=== PATIENT | male | born 1950 | race Caucasian/White ===

== ENCOUNTER 2021-07-05 09:08 | Inpatient (IN) ==
--- NOTE | 2021-07-05 09:51 | Emergency Department Note ---
History of Present Illness General Chief complaint: Abnormal Labs/Diagnostic Testing Stated complaint: ABNORMAL LABS Time Seen by Provider: 07/05/21 09:16 History of Present Illness Maximum Pain Intensity: 7 Patient is a 71-year-old male who returns to the emergency department as advised after having a positive preliminary blood culture this morning. He was seen and evaluated by myself yesterday, when he came to the emergency department for evaluation of left foot pain x1 week. He notes that he had twisted the foot getting out of a car about a week or so prior. Additionally, he had had about 3 days of subjective fever, with chills. He had no other infectious symptoms including cough, URI symptoms, dysuria, and was not actually documenting temperatures greater than 100 F. Work-up here in the emergency department noted normal left foot and ankle x-rays. Blood work noted a slightly elevated white count, sed rate and CRP. A Lyme screen was positive, with Western blot and remaining tickborne illness testing pending. It was felt that treatment with doxycycline was appropriate pending the remaining test results. He has had 2 doses of Doxy since leaving the emergency department. He has not had any further chills or sweats. The left foot feels better in his walking boot and using a crutch. He does still note some swelling and erythema in the feet bilaterally, right worse than left. 1 of 2 blood cultures was positive for gram-positive cocci in chains this morning at 0730. He was contacted and brought back to the emergency department for further evaluation. Home Medications Medication Instructions Recorded Confirmed Type albuterol sulfate 90 mcg/actuation 2 puff INHALATION QID PRN #8.5 g 11/29/19 07/05/21 Rx aerosol inhaler (ProAir HFA) doxycycline hyclate 100 mg tablet 100 mg PO BID 14 Days #28 tab 07/04/21 07/05/21 Rx multivitamin 1 tab PO QAM 07/04/21 07/05/21 History vitamin B complex 1 tab PO QAM 07/04/21 07/05/21 History Allergies Allergy/AdvReac Type Severity Reaction Status Date / Time Penicillins AdvReac Unknown Verified 07/05/21 12:30 Past Med/Surg History Medical History Allergic rhinitis Asthma Dyslipidemia Eczema Elevated blood pressure reading in office with diagnosis of hypertension Epidermoid cyst Insomnia Pre-diabetes Surgical History H/O neck surgery Family History Denies family history of Ovarian cancer Prostate cancer Myocardial infarction Breast cancer Colorectal cancer Social History Smoking Status: Former smoker Tobacco Type: Cigarettes Age Started Using Tobacco: 16; Age Quit Using Tobacco: 41; Second Hand Exposure: No; Hx Alcohol Use: Yes Hx Substance Use: No Preferred Language: Canadian Communication Ability: Effective Director Of Vocational Training Required: No marital status: Current Living Situation: Spouse current occupational status: retired How many Children do You have: 2 Feels Safe at Home: Yes Childhood Exposure to Second-Hand Smoke: Yes caffeine: Yes (coffee) Dental Care, Regularly: Yes Physical Activity Frequency: 1-2 Times per Week Seatbelt Use: always Sunscreen Use: No Review of Systems A total of 10 systems reviewed and were otherwise negative Physical Exam Vital Signs Vital Signs - 24 hr 07/05/21 09:13 07/05/21 09:57 07/05/21 10:04 Temperature 36.4 C L Temperature Source Temporal Artery Scan Pulse Rate 95 H 82 Pulse Rate [Apical] 89 Pulse Rhythm Regular Pulse Rhythm [Apical] Regular Pulse Strength [Apical] Normal Respiratory Rate 16 20 Respiratory Effort / Characteristics Non-Labored Spontaneous Respiratory Depth Normal Respiratory Pattern Regular Blood Pressure 155/76 H Blood Pressure [Left Arm] 167/75 H Blood Pressure Mean 102 Blood Pressure Mean [Left Arm] 105 Blood Pressure Position [Left Arm] Sitting Pulse Oximetry 98 98 99 Oxygen Delivery Method Room Air Room Air Room Air Sepsis Recent Fever Within 48 Hours Yes Sepsis New/Unexplained Change in Mental Status No Sepsis Action Taken by Nursing No Action Required 07/05/21 11:18 07/05/21 15:37 Temperature Temperature Source Pulse Rate 78 Pulse Rate [Apical] 79 Pulse Rhythm Pulse Rhythm [Apical] Regular Pulse Strength [Apical] Normal Respiratory Rate 20 18 Respiratory Effort / Characteristics Non-Labored Spontaneous Respiratory Depth Normal Respiratory Pattern Regular Blood Pressure 136/80 Blood Pressure [Left Arm] 155/79 H Blood Pressure Mean Blood Pressure Mean [Left Arm] 104 Blood Pressure Position [Left Arm] Sitting Pulse Oximetry 100 98 Oxygen Delivery Method Room Air Room Air Sepsis Recent Fever Within 48 Hours Sepsis New/Unexplained Change in Mental Status Sepsis Action Taken by Nursing CONSTITUTIONAL: Patient is a pleasant, well-appearing 71-year-old male who is awake and alert and in no acute distress. Temperature rechecked by me orally at the time of exam was 37F. EYES: Pupils equal, round, reactive to light and accommodation. EOMs intact without nystagmus. Sclera are anicteric. ENT: Tympanic membranes intact, with normal landmarks. External canals are clear. Oral and nasopharynx are clear. Mucous membranes are moist, no lesions, tongue and gums appear normal. CARDIOVASCULAR: Regular rate and rhythm,. Peripheral pulses easy to palpable. RESPIRATORY: Breath sounds equal and clear to auscultation without wheezes, rales, or rhonchi heard. Full and equal chest expansion without accessory muscle use or retractions. GI: Bowel sounds are present. Abdomen is soft, nontender, nondistended. No organomegaly. No pulsatile masses. No guarding or rebound. MUSCULOSKELETAL: Left foot is in a tall walking boot, this was removed. Examination of the feet bilaterally note erythema and swelling, primarily over the first MTP joints. The right foot is more erythematous, warm and swollen, but the left foot is more tender to palpation. Trace pitting edema noted to the ankles bilaterally. There is no lymphangitic streaking. Skin is intact without rash, lesion or puncture wound. He does still have some tenderness over the lateral aspect of the left foot and ankle. INTEGUMENTARY: As above. NEUROLOGICAL: Alert, oriented, and cooperative. Cranial nerves, sensation and strength grossly intact. Course Course The patient was seen and assessed as above. Old records are reviewed. He retu rns to the emergency department after having a positive blood culture x1 from his ED visit yesterday. In summary, he has had left foot pain for about a week, there was an injury to this foot however, and he was not responding to supportive management. He then subsequently developed subjective fever, chills/shakes, and fatigue but not true rigors. No fevers over 100 F. Work-up yesterday revealed negative x-rays, a mild leukocytosis with elevated sed rate and CRP and a positive IgG on Lyme screen. It was thought that his left foot pain was musculoskeletal in nature, and he was placed in a fracture boot. He was encouraged to follow-up with orthopedics. Given the chills, fatigue and malaise and the preliminarily positive Lyme screen, did think that it was reasonable to cover him with doxycycline. This morning, one of his blood cultures was positive for gram-positive cocci in chains. Patient history and presentation were reviewed with Dr. Harris, and the ED work-up was agreed upon. She also independently evaluated the patient. IV lock was initiated. CBC with differential, CMP, procalcitonin, lactate, magnesium, coags, urinalysis and blood cultures x2 were drawn again today. EKG and chest x-ray were obtained. Upper respiratory PCR panel was obtained. He was treated with vancomycin 2.5 g IV. CAT scan of the left foot was obtained. Laboratory studies note a slightly elevated white count at 12,400, down from 13,000 yesterday. H&H 13.3 and 38.9 with normal indices. INR 1.2. Electrolytes and renal functions are normal. Lactate is normal at 0.8. Transaminases are not elevated. Procalcitonin was ordered but is pending and will be delayed due to maintenance on the machine in the lab. Nasopharyngeal swab for viral pathology was completely clear. Chest x-ray was unremarkable. CT scan of the left foot is concerning for gouty arthropathy. No acute fracture dislocation noted but there are joint effusions and intra-articular debris in the first and TP and the IP joints. Soft tissue swelling is noted. All laboratory and diagnostic imaging studies were reviewed with Dr. Harris. The discomfort in his feet appears to be gouty in nature, I do question whether he may have a secondary cellulitis over the right foot. Given the positive blood culture and findings on work-up and exam today it was felt reasonable for admission/observation for additional IV antibiotics until blood cultures are resulted. His tickborne illness testing will likely be finalized in the next 48 hours as well. Consultation was placed with the [facility] physician group hospitalist service for further care and management, patient was reviewed with Dr. Ray. At time of dictation, procalcitonin was resulted and was within normal limits. Administered Medications Discontinued Medications Vancomycin HCl 2,500 mg/ (Sodium Chloride) 550 mls @ 200 mls/hr IV NOW ONE Stop: 07/05/21 12:47 Last Infusion: 07/05/21 14:56 Dose: 0 mls/hr Documented by: [id number] Admin: 07/05/21 11:18 Dose: 200 mls/hr Documented by: [id number] Methylprednisolone (Methylprednisolone 40 Mg/Ml Vial) 40 mg IV NOW STA Stop: 07/05/21 14:23 Last Admin: 07/05/21 14:54 Dose: 40 mg Documented by: [id number] Medical Decision Making Differential Diagnosis Differential diagnoses entertained included fracture, sprain, crystal arth ropathy, septic joint, cellulitis, viral illness, tickborne illness, sepsis, bacteremia, osteomyelitis, among others. Medical Records Attestation: I reviewed the patient's medical records. Home Medications Current Medication List: was personally reviewed by me Laboratory Data Attestation: I reviewed the patient's lab results. Result diagrams: 07/05/21 09:30 07/05/21 09:30 Lab Results 07/05/21 07/05/21 07/05/21 Range/Units 09:30 09:30 09:30 WBC 12.44 H (4.8-10.8) K/uL RBC 4.21 L (4.7-6.1) M/uL Hgb 13.3 L (14.0-18.0) g/dL Hct 38.9 L (42-52) % MCV 92.4 (80-100) fL MCH 31.6 (25-34) pg MCHC 34.2 (32-36) g/dL RDW Std Deviation 41.5 (36.4-46.3) fL RDW Coeff of Moises 12.2 (11.5-14.5) % Plt Count 374 (130-400) K/uL MPV 9.7 (7.4-10.4) fL Immature Gran % (Auto) 0.2 % Neut % (Auto) 71.8 % Lymph % (Auto) 15.0 % Rhea % (Auto) 10.6 % Eos % (Auto) 2.1 % Baso % (Auto) 0.3 % Neut # (Auto) 8.93 H (1.4-6.5) K/uL Lymph # (Auto) 1.86 (1.2-3.4) K/uL Rhea # (Auto) 1.32 H (0.11-0.59) K/uL Eos # (Auto) 0.26 (0-0.5) K/uL Baso # (Auto) 0.04 (0-0.2) K/uL Immature Gran # (Auto) 0.03 H (0.00-0.02) K/uL PT (9.0-12.0) Seconds INR (0.9-1.1) APTT (21.0-31.0) Seconds PTT Ratio Sodium 135 L (136-145) mmol/L Potassium 4.6 (3.5-5.1) mmol/L Chloride 98 (98-107) mmol/L Carbon Dioxide 27 (21-32) mmol/L Anion Gap 10 (3-11) BUN 18 (6-23) mg/dl Creatinine 1.16 (0.6-1.4) mg/dl Est Cr Clr Drug Dosing 87.8 ml/min Est GFR ( Amer) 73.5 ml/min Est GFR (Non-Af Amer) 63.5 ml/min BUN/Creatinine Ratio 15.5 (10-20) Glucose 139 H (70-99(Fasting)) mg/dl Lactate (0.4-2.0) mmol/L Calcium 9.2 (8.5-10.1) mg/dl Magnesium 2.3 (1.7-2.4) mg/dl Total Bilirubin 1.0 (0.2-1.0) mg/dl AST 21 (13-39) U/L ALT 24 (7-52) U/L Alkaline Phosphatase 53 (34-104) U/L Total Protein 7.1 (6.0-8.3) gm/dl Albumin 3.7 (3.4-5.0) gm/dl Globulin 3.4 (2.5-4.0) gm/dl Albumin/Globulin Ratio 1.1 (0.9-2) Procalcitonin 0.15 (0-0.5) ng/ml Adenovirus (PCR) (NotDetected) B. pertussis DNA (PCR) (NotDetected) B.parapertussis DNA PCR (NotDetected) C. pneumoniae DNA (PCR) (NotDetected) Coronavirus OC43 (PCR) (NotDetected) Coronavirus HKU1 (PCR) (NotDetected) Coronavirus 229E (PCR) (NotDetected) SARS-CoV-2 (PCR) (NotDetected) Coronavirus NL63 (PCR) (NotDetected) Human Metapneumovir PCR (NotDetected) Influenza Type A (PCR) (NotDetected) Influenza Type B (PCR) (NotDetected) M. pneumoniae (PCR) (NotDetected) Parainfluenza 1 (PCR) (NotDetected) Parainfluenza 2 (PCR) (NotDetected) Parainfluenza 3 (PCR) (NotDetected) Parainfluenza 4 (PCR) (NotDetected) RSV (PCR) (NotDetected) Entero/Rhino (PCR) (NotDetected) 07/05/21 07/05/21 07/05/21 Range/Units 09:54 10:12 10:12 WBC (4.8-10.8) K/uL RBC (4.7-6.1) M/uL Hgb (14.0-18.0) g/dL Hct (42-52) % MCV (80-100) fL MCH (25-34) pg MCHC (32-36) g/dL RDW Std Deviation (36.4-46.3) fL RDW Coeff of Moises (11.5-14.5) % Plt Count (130-400) K/uL MPV (7.4-10.4) fL Immature Gran % (Auto) % Neut % (Auto) % Lymph % (Auto) % Rhea % (Auto) % Eos % (Auto) % Baso % (Auto) % Neut # (Auto) (1.4-6.5) K/uL Lymph # (Auto) (1.2-3.4) K/uL Rhea # (Auto) (0.11-0.59) K/uL Eos # (Auto) (0-0.5) K/uL Baso # (Auto) (0-0.2) K/uL Immature Gran # (Auto) (0.00-0.02) K/uL PT 12.4 H (9.0-12.0) Seconds INR 1.2 H (0.9-1.1) APTT 27.0 (21.0-31.0) Seconds PTT Ratio 1.0 Sodium (136-145) mmol/L Potassium (3.5-5.1) mmol/L Chloride (98-107) mmol/L Carbon Dioxide (21-32) mmol/L Anion Gap (3-11) BUN (6-23) mg/dl Creatinine (0.6-1.4) mg/dl Est Cr Clr Drug Dosing ml/min Est GFR ( Amer) ml/min Est GFR (Non-Af Amer) ml/min BUN/Creatinine Ratio (10-20) Glucose (70-99(Fasting)) mg/dl Lactate 0.8 (0.4-2.0) mmol/L Calcium (8.5-10.1) mg/dl Magnesium (1.7-2.4) mg/dl Total Bilirubin (0.2-1.0) mg/dl AST (13-39) U/L ALT (7-52) U/L Alkaline Phosphatase (34-104) U/L Total Protein (6.0-8.3) gm/dl Albumin (3.4-5.0) gm/dl Globulin (2.5-4.0) gm/dl Albumin/Globulin Ratio (0.9-2) Procalcitonin (0-0.5) ng/ml Adenovirus (PCR) Not Detected (NotDetected) B. pertussis DNA (PCR) Not Detected (NotDetected) B.parapertussis DNA PCR Not Detected (NotDetected) C. pneumoniae DNA (PCR) Not Detected (NotDetected) Coronavirus OC43 (PCR) Not Detected (NotDetected) Coronavirus HKU1 (PCR) Not Detected (NotDetected) Coronavirus 229E (PCR) Not Detected (NotDetected) SARS-CoV-2 (PCR) Not Detected (NotDetected) Coronavirus NL63 (PCR) Not Detected (NotDetected) Human Metapneumovir PCR Not Detected (NotDetected) Influenza Type A (PCR) Not Detected (NotDetected) Influenza Type B (PCR) Not Detected (NotDetected) M. pneumoniae (PCR) Not Detected (NotDetected) Parainfluenza 1 (PCR) Not Detected (NotDetected) Parainfluenza 2 (PCR) Not Detected (NotDetected) Parainfluenza 3 (PCR) Not Detected (NotDetected) Parainfluenza 4 (PCR) Not Detected (NotDetected) RSV (PCR) Not Detected (NotDetected) Entero/Rhino (PCR) Not Detected (NotDetected) Imaging Data Attestation: I personally reviewed and interpreted this imaging study as follows: Radiologist's Impression: Chest X-Ray 07/05/21 09:25 SINGLE VIEW CHEST CLINICAL HISTORY: Sepsis. FINDINGS: 2 AP, portable, upright chest radiographs are obtained. No prior studies are available for comparison at the time of dictation. The examination is degraded by portable technique and apical lordotic positioning. The cardiomediastinal silhouette is top normal for projection. There is mild bibasilar scarring/atelectasis. The lungs and pleural spaces are otherwise clear. No pneumothorax is seen. The skeletal structures are osteopenic. The bony thorax is grossly intact. IMPRESSION: No acute cardiopulmonary abnormality. ACT 112: Negative or not required by law. Electronically signed by: Guy Ledezma M.D. 07/05/2021 9:[address] 07/05/21 10:33 CT foot LT wo con HISTORY: 71 years-old Male PAIN/SWELLING GOUT VS CELLULITIS acute pain and swelling of the left foot COMPARISON: Radiographs of the left foot and ankle 07/04/2021 TECHNIQUE: Multiple axial CT images of the left foot were obtained without the use of IV contrast. A dose lowering technique was used consistent with the principals of ALARA. FINDINGS: Tendons and ligaments are not well evaluated by CT technique. No gross tendon or ligament injury identified by CT. Subcutaneous edema of the foot and ankle, most pronounced in the dorsal forefoot and also surrounding the first MTP joint. Marginal and juxta-articular erosions with sclerotic overhanging margins are noted involving the first metatarsophalangeal and interphalangeal joints. Moderate first MTP with mild first interphalangeal joint effusions are noted along with calcified intra-articular debris. No acute fracture or dislocation. Multifocal osteoarthritis, moderate within the first MTP joint. Degenerative marginal spurring of the calcaneus. IMPRESSION: 1. No acute fracture or dislocation. 2. Findings suggestive of gout arthropathy involving the first metatarsophalangeal and interphalangeal joints with associated joint effusions containing subcentimeter calcified intra-articular debris/loose bodies. 3. Mild to moderate subcutaneous edema of the foot and ankle. ACT 112: Negative or not required by law. The above report was generated using voice recognition software. It may contain grammatical, syntax or spelling errors. Electronically signed by: Randy Suarez M.D. 07/05/2021 11:47 AM MDM Narrative See ED Course. Impression & Plan Blood bacterial culture positive, Gout, Positive Lyme disease serology Discharge Plan Visit Data Chief Complaint: Abnormal Labs/Diagnostic Testing Stated Complaint: ABNORMAL LABS ED Provider: Sarita Harris ED Midlevel Provider: Kelly Marcos Discharge Problem: Blood bacterial culture positive, Gout, Positive Lyme disease serology Patient Disposition: Admitted As Inpatient Discharge Instructions Interventions: ED Discharge Assessment Last Done: 07/05/21 15:37 Forms Stand Alone Forms: [employer] Prescriptions Prescriptions: No Action albuterol sulfate [ProAir HFA] 90 mcg/actuation HFA aerosol inhaler 2 puff inhalation QID PRN (Reason: shortness of breath or wheezing) Qty: 8.5 RF: 2 multivitamin Tablet 1 tab PO QAM RF: 0 vitamin B complex Tablet 1 tab PO QAM RF: 0 doxycycline hyclate 100 mg tablet 100 mg PO BID 14 Days Qty: 28 RF: 0 Referrals Referrals: Alyssa Powell CRNP [Primary Care Provider] -
--- NOTE | 2021-07-05 09:54 | XRay Report ---
SINGLE VIEW CHEST CLINICAL HISTORY: Sepsis. FINDINGS: 2 AP, portable, upright chest radiographs are obtained. No prior studies are available for comparison at the time of dictation. The examination is degraded by portable technique and apical jackie dotic positioning. The cardiomediastinal silhouette is top normal for projection. There is mild bibas ilar scarring/atelectasis. The lungs and pleural spaces are otherwise clear. No pneumothorax is seen. The skeletal structures are osteopenic. The bony thorax is grossly intact. IMPRESSION: No acute cardiopulmonary abnormality. ACT 112: Negative or not required by law. Electronically signed by: Guy Ledezma M.D. 07/05/2021 9:53 AM
[2021-07-05 09:56] LABS: Basophils # (auto) 0.04 K/uL (0-0.2); Basophils % (auto) 0.3 %; Eosinophils # (auto) 0.26 K/uL (0-0.5); Eosinophils % (auto) 2.1 %; Hematocrit (blood only) 38.9 % (42-52); Hemoglobin 13.3 g/dL (14.0-18.0); Immature Granulocytes # (auto) 0.03 K/uL (0.00-0.02); Immature Granulocytes % (auto) 0.2 %; Lymphocytes # (auto) 1.86 K/uL (1.2-3.4); Mean Corpuscular Hemoglobin 31.6 pg (25-34); Mean Corpuscular Hgb Conc 34.2 g/dL (32-36); Mean Corpuscular Volume 92.4 fL (80-100); Mean Platelet Volume 9.7 fL (7.4-10.4); Monocytes # (auto) 1.32 K/uL (0.11-0.59); Monocytes % (auto) 10.6 %; Neutrophils # (auto) 8.93 K/uL (1.4-6.5); Neutrophils % (auto) 71.8 %; Platelet Count 374 K/uL (130-400); RDW Coefficient of Variation 12.2 % (11.5-14.5); RDW Standard Deviation 41.5 fL (36.4-46.3); Red Blood Count 4.21 M/uL (4.7-6.1); White Blood Count 12.44 K/uL (4.8-10.8)
[2021-07-05] MEDS ORDERED: VANCOMYCIN HCL 2,500 MG in SODIUM CHLORIDE 0.9% 500 ML IV ONE (10:03)
[2021-07-05] MEDS ORDERED: VANCOMYCIN CONSULT ACTIVE PRN (10:03)
[2021-07-05 10:26] LABS: Albumin Globulin Ratio 1.1 (0.9-2); Albumin Level 3.7 gm/dl (3.4-5.0); BUN Creatinine Ratio 15.5 (10-20); Calcium 9.2 mg/dl (8.5-10.1); Creatinine Clr Calc Pharmacy 87.8 ml/min; Est GFR (African American) 73.5 ml/min; Est GFR (Non-African American) 63.5 ml/min; Globulin 3.4 gm/dl (2.5-4.0); Magnesium 2.3 mg/dl (1.7-2.4); Potassium 4.6 mmol/L (3.5-5.1); Total Protein 7.1 gm/dl (6.0-8.3)
[2021-07-05 10:37] LABS: INR 1.2 (0.9-1.1); Prothrombin Time 12.4 Seconds (9.0-12.0)
--- NOTE | 2021-07-05 10:53 | Emergency Department Note ---
ED Visit Note I have personally seen and evaluated the patient with the PA. I agree with the diagnosis and management decisions and have been personally involved in the case. MTP joints are inflamed, right greater than left. Patient seems to have more pain in the left MTP. Given the one positive blood culture, elevated WBC, sed rate and CRP, IV vancomycin has been initiated. Additional imaging has been ordered. Please see Giulia Marcos PA-C's notes for further details of the history, physical and visit.
[2021-07-05 11:04] LABS: Adenovirus PCR Not Detected (NotDetected); Bordetella parapertussis PCR Not Detected (NotDetected); Bordetella pertussis PCR Not Detected (NotDetected); Chlamydia pneumoniae PCR Not Detected (NotDetected); Coronavirus 229E PCR Not Detected (NotDetected); Coronavirus CoV-2 (COVID19)PCR Not Detected (NotDetected); Coronavirus HKU1 PCR Not Detected (NotDetected); Coronavirus NL63 PCR Not Detected (NotDetected); Coronavirus OC43PCR Not Detected (NotDetected); Human Metapneumovirus PCR Not Detected (NotDetected); Influenza A PCR Not Detected (NotDetected); Influenza B PCR Not Detected (NotDetected); Mycoplasma pneumoniae PCR Not Detected (NotDetected); Parainfluenza Virus 1 PCR Not Detected (NotDetected); Parainfluenza Virus 2 PCR Not Detected (NotDetected); Parainfluenza Virus 3 PCR Not Detected (NotDetected); Parainfluenza Virus 4 PCR Not Detected (NotDetected); Respiratory Syncytial VirusPCR Not Detected (NotDetected); Rhinovirus/Enterovirus PCR Not Detected (NotDetected)
--- NOTE | 2021-07-05 11:49 | CT Scan Report ---
CT foot LT wo con HISTORY: 71 years-old Male PAIN/SWELLING GOUT VS CELLULITIS acute pain and swelling of the left foot COMPARISON: Radiographs of the left foot and ankle 07/04/2021 TECHNIQUE: Multiple axial CT images of the left foot were obtained without the use of IV contrast. A dose lowering technique was used consistent with the principals of ACOSTA. FINDINGS: Tendons and ligaments are not well evaluated by CT technique. No gross tendon or ligament injury iden tified by CT. Subcutaneous edema of the foot and ankle, most pronounced in the dorsal forefoot and al so surrounding the first MTP joint. Marginal and juxta-articular erosions with sclerotic overhanging margins are noted involving the first metatarsophalangeal and interphalangeal joints. Moderate first MTP with mild first interphalangeal joint effusions are noted along with calcified intra-articular de bris. No acute fracture or dislocation. Multifocal osteoarthritis, moderate within the first MTP joint. Deg enerative marginal spurring of the calcaneus. IMPRESSION: 1. No acute fracture or dislocation. 2. Findings suggestive of gout arthropathy involving the first metatarsophalangeal and interphalangea l joints with associated joint effusions containing subcentimeter calcified intra-articular debris/lo ose bodies. 3. Mild to moderate subcutaneous edema of the foot and ankle. ACT 112: Negative or not required by law. The above report was generated using voice recognition software. It may contain grammatical, syntax o r spelling errors. Electronically signed by: Randy Suarez M.D. 07/05/2021 11:47 AM
--- NOTE | 2021-07-05 13:35 | History & Physical Report ---
Date of Service July 05, 2021 Assessment & Plan (1) Gout: Plan: Placed in monitored observation I suspect that this is the cause of the patient's lower extremity erythema, seen on the left CT scan. Patient does not have a history of gout however. I did ask ER to order foot CT of the contralateral foot to confirm Patient was given vancomycin in the ER, will hold off on further dosing until blood cultures result I will start colchicine p.o. along with IV dosing of Solu-Medrol. Monitor for results, seems to already be resolving (2) Blood bacterial culture positive: Plan: 1 out of 2 bottles gram-positive cocci, suspect this is contaminant Transient symptoms of infection for as reported may be from gout, seem to have resolved Patient was given vancomycin in the ER as noted above, will hold further dosing for now Await final ID and sensitivity of cultures from first ER visit, monitor repeat cultures today. If negative, would not treat with antibiotics further (3) Positive Lyme disease serology: Plan: Suspect this is evidence of previous gout infection rather than a new acute gout infection Patient had left the emergency room yesterday with doxycycline, I do not feel continuing this is necessary Await final lab results (4) Asthma: Plan: Quiescent, can use albuterol as needed (5) Dyslipidemia: Plan: Patient does not appear to be on any medications at this an outpatient Will check fasting lipids in the morning History of Present Illness Chief Complaint: foot pain Primary Care Provider: LOREN Joyner This is a 71-year-old male with past medical history of hyperlipidemia, asthma and hypertension that presents complaining of foot pain with positive blood cultures. Patient is a decent historian. Per history, patient had initially presented to the emergency room yesterday on 07/04 complaining foot pain. This was noted as a left foot pain and swelling. This is persisted for approximately a week, he thought that he had injured it getting out of a vehicle. Initially the erythema was on the lateral aspect of the foot but has since settled into the first metatarsal joint. This area was painful and tender although he tells me that is improved since his ER visit yesterday. Patient also describes some mild URI type symptoms and had coincidently tested positive for Lyme disease and was started on doxycycline. (On review, I see the patient has a positive for IgG. IgM is negative with Western blot pending, more concerning for previous Lyme infection than acute course.) Patient was called back to the ER today after blood cultures are positive. He had 1 out of 2 bottles positive for gram-positive cocci. On his return, he told staff that his foot was feeling much better but has now developed erythema in the right foot. This is in a similar area over the right first metatarsal joint. The area was tender but again he tells me this is improved since presenting. His other symptoms including fevers or chills are since resolved and he otherwise feels well. He is requesting to ambulate under his own power to the bathroom. Allergies Allergy/AdvReac Type Severity Reaction Status Date / Time Penicillins AdvReac Unknown Verified 07/05/21 12:30 Home Medications Medication Instructions Recorded Confirmed Type albuterol sulfate 90 mcg/actuation 2 puff INHALATION QID PRN #8.5 g 11/29/19 07/05/21 Rx aerosol inhaler (ProAir HFA) doxycycline hyclate 100 mg tablet 100 mg PO BID 14 Days #28 tab 07/04/21 07/05/21 Rx multivitamin 1 tab PO QAM 07/04/21 07/05/21 History vitamin B complex 1 tab PO QAM 07/04/21 07/05/21 History Past Med/Surg History Medical History Allergic rhinitis Asthma Dyslipidemia Eczema Elevated blood pressure reading in office with diagnosis of hypertension Epidermoid cyst Insomnia Pre-diabetes Surgical History H/O neck surgery Family History Denies family history of Ovarian cancer Prostate cancer Myocardial infarction Breast cancer Colorectal cancer Social History Smoking Status: Former smoker Tobacco Type: Cigarettes Age Started Using Tobacco: 16; Age Quit Using Tobacco: 41; Second Hand Exposure: No; Hx Alcohol Use: Yes Hx Substance Use: No Preferred Language: Kinyarwanda Communication Ability: Effective Trauma Surgeon Required: No marital status: Current Living Situation: Spouse current occupational status: retired How many Children do You have: 2 Feels Safe at Home: Yes Childhood Exposure to Second-Hand Smoke: Yes caffeine: Yes (coffee) Dental Care, Regularly: Yes Physical Activity Frequency: 1-2 Times per Week Seatbelt Use: always Sunscreen Use: No Review of Systems Constitutional: + fever and + chills; no fatigue, no weakness, no weight loss and no weight gain Eyes: as per Subjective / HPI Respiratory: no cough, no chest congestion, no dyspnea and no dyspnea on exertion Cardiovascular: no chest pain, no orthopnea, no palpitations, no lightheadedness and no edema Gastrointestinal: no abdominal pain, no nausea, no vomiting, no constipation and no diarrhea/loose stools Musculoskeletal: + joint pain (no knee pain); no back pain, no neck pain, no stiffness and no myalgia Integumentary: no rash Neurologic: no gait abnormality, no unsteadiness, no falls and no generalized weakness Physical Exam Constitutional: cooperative; no acute distress Neck: trachea midline, no thyromegaly Respiratory: normal respiratory effort Auscultation: lungs clear to auscultation bilaterally; no crackles, no rales, no rhonchi and no wheezes Cardiovascular: Rate/Rhythm: regular rate and regular rhythm Heart Sounds: normal S1 and normal S2; no murmur Gastrointestinal (Abdomen): Inspection/Auscultation: abdomen normal to inspection Percussion/Palpation: abdomen soft; abdomen nontender, no guarding, abdomen not rigid and no hepatosplenomegaly Musculoskeletal: Trace bilateral nonpitting edema. Significant erythema with mild edema around the first metatarsal joints of both the left and right foot. Patient has full active mobility in his toes without pain and no tenderness with palpation Skin: no rashes, warm and dry Results & Data Results & Data ([facility]) Vital Signs (Past 12 Hours) Vital Signs Temp Pulse Pulse Resp BP BP Pulse Ox 07/05/21 11:18 79 20 155/79 H 100 07/05/21 10:04 89 20 167/75 H 99 07/05/21 09:57 82 98 07/05/21 09:13 36.4 C L 95 H 16 155/76 H 98 Laboratory Results Laboratory Results WBC 12.44 K/uL (4.8-10.8) H 07/05/21 09:30 RBC 4.21 M/uL (4.7-6.1) L 07/05/21 09:30 Hgb 13.3 g/dL (14.0-18.0) L 07/05/21 09:30 Hct 38.9 % (42-52) L 07/05/21 09:30 MCV 92.4 fL (80-100) 07/05/21 09:30 MCH 31.6 pg (25-34) 07/05/21 09:30 MCHC 34.2 g/dL (32-36) 07/05/21 09:30 RDW Std Deviation 41.5 fL (36.4-46.3) 07/05/21 09:30 RDW Coeff of Moises 12.2 % (11.5-14.5) 07/05/21 09:30 Plt Count 374 K/uL (130-400) 07/05/21 09:30 MPV 9.7 fL (7.4-10.4) 07/05/21 09:30 Immature Gran % (Auto) 0.2 % 07/05/21 09:30 Neut % (Auto) 71.8 % 07/05/21 09:30 Lymph % (Auto) 15.0 % 07/05/21 09:30 [place] % (Auto) 10.6 % 07/05/21 09:30 Eos % (Auto) 2.1 % 07/05/21 09:30 Baso % (Auto) 0.3 % 07/05/21 09:30 Neut # (Auto) 8.93 K/uL (1.4-6.5) H 07/05/21 09:30 Lymph # (Auto) 1.86 K/uL (1.2-3.4) 07/05/21 09:30 [place] # (Auto) 1.32 K/uL (0.11-0.59) H 07/05/21 09:30 Eos # (Auto) 0.26 K/uL (0-0.5) 07/05/21 09:30 Baso # (Auto) 0.04 K/uL (0-0.2) 07/05/21 09:30 Immature Gran # (Auto) 0.03 K/uL (0.00-0.02) H 07/05/21 09:30 PT 12.4 Seconds (9.0-12.0) H 07/05/21 10:12 INR 1.2 (0.9-1.1) H 07/05/21 10:12 APTT 27.0 Seconds (21.0-31.0) 07/05/21 10:12 PTT Ratio 1.0 07/05/21 10:12 Sodium 135 mmol/L (136-145) L 07/05/21 09:30 Potassium 4.6 mmol/L (3.5-5.1) 07/05/21 09:30 Chloride 98 mmol/L (98-107) 07/05/21 09:30 Carbon Dioxide 27 mmol/L (21-32) 07/05/21 09:30 Anion Gap 10 (3-11) 07/05/21 09:30 BUN 18 mg/dl (6-23) 07/05/21 09:30 Creatinine 1.16 mg/dl (0.6-1.4) 07/05/21 09:30 Est Cr Clr Drug Dosing 87.8 ml/min 07/05/21 09:30 Est GFR ( Amer) 73.5 ml/min 07/05/21 09:30 Est GFR (Non-Af Amer) 63.5 ml/min 07/05/21 09:30 BUN/Creatinine Ratio 15.5 (10-20) 07/05/21 09:30 Glucose 139 mg/dl (70-99(Fasting)) H 07/05/21 09:30 Lactate 0.8 mmol/L (0.4-2.0) 07/05/21 10:12 Calcium 9.2 mg/dl (8.5-10.1) 07/05/21 09:30 Magnesium 2.3 mg/dl (1.7-2.4) 07/05/21 09:30 Total Bilirubin 1.0 mg/dl (0.2-1.0) 07/05/21 09:30 AST 21 U/L (13-39) 07/05/21 09:30 ALT 24 U/L (7-52) 07/05/21 09:30 Alkaline Phosphatase 53 U/L (34-104) 07/05/21 09:30 Total Protein 7.1 gm/dl (6.0-8.3) 07/05/21 09:30 Albumin 3.7 gm/dl (3.4-5.0) 07/05/21 09:30 Globulin 3.4 gm/dl (2.5-4.0) 07/05/21 09:30 Albumin/Globulin Ratio 1.1 (0.9-2) 07/05/21 09:30 Procalcitonin 0.15 ng/ml (0-0.5) 07/05/21 09:30 Adenovirus (PCR) Not Detected (NotDetected) 07/05/21 09:54 B. pertussis DNA (PCR) Not Detected (NotDetected) 07/05/21 09:54 B.parapertussis DNA PCR Not Detected (NotDetected) 07/05/21 09:54 C. pneumoniae DNA (PCR) Not Detected (NotDetected) 07/05/21 09:54 Coronavirus OC43 (PCR) Not Detected (NotDetected) 07/05/21 09:54 Coronavirus HKU1 (PCR) Not Detected (NotDetected) 07/05/21 09:54 Coronavirus 229E (PCR) Not Detected (NotDetected) 07/05/21 09:54 SARS-CoV-2 (PCR) Not Detected (NotDetected) 07/05/21 09:54 Coronavirus NL63 (PCR) Not Detected (NotDetected) 07/05/21 09:54 Human Metapneumovir PCR Not Detected (NotDetected) 07/05/21 09:54 Influenza Type A (PCR) Not Detected (NotDetected) 07/05/21 09:54 Influenza Type B (PCR) Not Detected (NotDetected) 07/05/21 09:54 M. pneumoniae (PCR) Not Detected (NotDetected) 07/05/21 09:54 Parainfluenza 1 (PCR) Not Detected (NotDetected) 07/05/21 09:54 Parainfluenza 2 (PCR) Not Detected (NotDetected) 07/05/21 09:54 Parainfluenza 3 (PCR) Not Detected (NotDetected) 07/05/21 09:54 Parainfluenza 4 (PCR) Not Detected (NotDetected) 07/05/21 09:54 RSV (PCR) Not Detected (NotDetected) 07/05/21 09:54 Entero/Rhino (PCR) Not Detected (NotDetected) 07/05/21 09:54 Impressions Chest X-Ray 07/05/21 09:25 SINGLE VIEW CHEST CLINICAL HISTORY: Sepsis. FINDINGS: 2 AP, portable, upright chest radiographs are obtained. No prior studies are available for comparison at the time of dictation. The examination is degraded by portable technique and apical lordotic positioning. The cardiomediastinal silhouette is top normal for projection. There is mild bibasilar scarring/atelectasis. The lungs and pleural spaces are otherwise clear. No pneumothorax is seen. The skeletal structures are osteopenic. The bony thorax is grossly intact. IMPRESSION: No acute cardiopulmonary abnormality. ACT 112: Negative or not required by law. Electronically signed by: Guy Ledezma M.D. 07/05/2021 9:[address] 07/05/21 10:33 CT foot LT wo con HISTORY: 71 years-old Male PAIN/SWELLING GOUT VS CELLULITIS acute pain and swelling of the left foot COMPARISON: Radiographs of the left foot and ankle 07/04/2021 TECHNIQUE: Multiple axial CT images of the left foot were obtained without the use of IV contrast. A dose lowering technique was used consistent with the principals of ALARA. FINDINGS: Tendons and ligaments are not well evaluated by CT technique. No gross tendon or ligament injury identified by CT. Subcutaneous edema of the foot and ankle, most pronounced in the dorsal forefoot and also surrounding the first MTP joint. Marginal and juxta-articular erosions with sclerotic overhanging margins are noted involving the first metatarsophalangeal and interphalangeal joints. Moderate first MTP with mild first interphalangeal joint effusions are noted along with calcified intra-articular debris. No acute fracture or dislocation. Multifocal osteoarthritis, moderate within the first MTP joint. Degenerative marginal spurring of the calcaneus. IMPRESSION: 1. No acute fracture or dislocation. 2. Findings suggestive of gout arthropathy involving the first metatarsophalangeal and interphalangeal joints with associated joint effusions containing subcentimeter calcified intra-articular debris/loose bodies. 3. Mild to moderate subcutaneous edema of the foot and ankle. ACT 112: Negative or not required by law. The above report was generated using voice recognition software. It may contain grammatical, syntax or spelling errors. Electronically signed by: Randy Suarez M.D. 07/05/2021 11:47 AM PG Care Time/CCT Total # of Minutes Spent Total Time Spent with Patient: Total time spent is greater than 50% in coordination of care (as documented) at patient's floor/unit and/or counseling patient: Coding Level of Care Code 59225 Initial Inpt Care Lvl 3 Diagnoses Positive Lyme disease serology R76.8 Asthma J45.909 Dyslipidemia E78.5 Gout M10.9 Blood bacterial culture positive R78.81
[2021-07-05] MEDS ORDERED: methylPREDNISolone 40 MG in DEXTROSE 5% 250 ML IV STA (14:07)
[2021-07-05] MEDS ORDERED: ACETAMINOPHEN 325 MG TAB PO PRN (16:11)
[2021-07-05] MEDS ORDERED: ONDANSETRON INJ 2 MG/ML 2 ML VIAL IV PRN (16:11)
[2021-07-05] MEDS ORDERED: COLCHICINE 0.6 MG TAB PO ONE (16:11)
[2021-07-05] MEDS ORDERED: ALBUTEROL HFA 8 GM INHALER INH PRN (16:19)
[2021-07-05] MEDS ORDERED: VANCOMYCIN HCL 1,500 MG in SODIUM CHLORIDE 0.9% 500 ML IV SCH (23:00)
[2021-07-06 07:11] LABS: Basophils # (auto) 0.01 K/uL (0-0.2); Basophils % (auto) 0.1 %; Hematocrit (blood only) 37.7 % (42-52); Hemoglobin 12.9 g/dL (14.0-18.0); Immature Granulocytes # (auto) 0.03 K/uL (0.00-0.02); Immature Granulocytes % (auto) 0.3 %; Mean Corpuscular Hemoglobin 30.8 pg (25-34); Mean Corpuscular Hgb Conc 34.2 g/dL (32-36); Mean Platelet Volume 9.7 fL (7.4-10.4); Monocytes # (auto) 0.91 K/uL (0.11-0.59); Monocytes % (auto) 8.1 %; Neutrophils # (auto) 9.44 K/uL (1.4-6.5); Neutrophils % (auto) 83.5 %; Platelet Count 356 K/uL (130-400); RDW Coefficient of Variation 12.2 % (11.5-14.5); RDW Standard Deviation 39.7 fL (36.4-46.3); Red Blood Count 4.19 M/uL (4.7-6.1); White Blood Count 11.29 K/uL (4.8-10.8)
[2021-07-06] MEDS: MULTIVITAMIN TAB PO SCH (07:39)
[2021-07-06] MEDS: VITAMIN B COMPLEX TAB PO SCH (07:39)
[2021-07-06] MEDS: COLCHICINE 0.6 MG TAB PO SCH ×2 (08:43→20:17)
[2021-07-06 08:48] LABS: Albumin Level 3.6 gm/dl (3.4-5.0); BUN Creatinine Ratio 20.2 (10-20); Bilirubin,Total 0.5 mg/dl (0.2-1.0); Chol HDL Ratio 6.5 (0-5); Creatinine Clr Calc Pharmacy 89.4 ml/min; Est GFR (African American) 75.1 ml/min; Est GFR (Non-African American) 64.8 ml/min; Globulin 3.6 gm/dl (2.5-4.0); Potassium 4.9 mmol/L (3.5-5.1); Total Protein 7.2 gm/dl (6.0-8.3)
--- NOTE | 2021-07-06 09:37 | Pharmacy Report ---
Pharmacy Vanc AUC Short Note - Date of Service July 06, 2021 - Assessment & Plan Assessment 71 year old M receiving Vancomycin 1500 mg IV q18h for treatment of possible bacteremia (1 out of 4 blood cultures positive so far). Patient received loading dose Vancomycin 2500 mg (19.5 mg/kg) IV x1 yesterday at 11:18 AM. Maintenance dose started at 23:00 yesterday. Day #2 of antimicrobial therapy. Plan Vancomycin * AUC/FLASH is the preferred PK/PD target for vancomycin * AUC guided dosing is effective and associated with decreased risk of nephrotoxicity compared to traditional trough targets * Expecting trough level of 15.3 mg/L with current dosing. * This trough level is predicted to achieve target AUC/FLASH of 400-600 mg/L.hr and may be associated with a 11% risk of nephrotoxicity * Trough Vanco level ordered for: 07/07/21 before dose at 11:00 Pharmacy will continue to follow and will adjust dose/frequency as necessary. Thank you.
--- NOTE | 2021-07-06 13:37 | Hospitalist Progress Note ---
Date of Service July 06, 2021 Assessment & Plan (1) Gout: Plan: Joint Pain, ddx includes gout, lyme, infection - Did discuss Lyme serology, patient reports he has never had or been treated for Lyme disease to his knowledge. Discussed that his IgG was positive, and co nfirmation testing is pending but this could suggest either past infection which was cleared/treated or Lyme infection which is been present for several weeks but untreated. Given the inability to tell between these without confirmation testing we will continue empiric doxycycline pending Western blot testing. - Also discussed with patient that while he has improved with Methylpred and colchicine for gout treatment, and that his CT imaging is consistent with gout, a infected joint cannot be completely excluded and he has been on vancomycin which could cause improvement where the joint infected. He did have 1/4 blood culture bottles which is more suggestive of contamination, speciate it for alpha strep which is a frequent contaminant. Surveillance cultures remain negative. Discussed that differential for his joint pain includes gout, Lyme, and that a joint infection cannot be excluded without performing a tap. - CT Left Foot: Findings suggestive of gout arthropathy involving the first metatarsophalangeal and interphalangeal joints with associated joint effusions containing subcentimeter calcified intra-articular debris/loose bodies. - Patient was given vancomycin in the ER, continued to improve without further abx and continued colchicine -On shared decision making we will continue treatment for gout at this time, will continue -Continue Lyme treatment pending serology results. If patient has any worsening patient agreeable to orthopedic consult and joint aspiration with culture/microscopy at that time (2) Blood bacterial culture positive: Plan: 1 out of 4 bottles alpha strep not pneumo or Enterococcus. Suspicious for contamination Transient symptoms of infection for as reported may be from gout, seem to have resolved Deferred additional back treatment at this time, continue to follow as noted (3) Positive Lyme disease serology: Plan: Would be consistent with a previous Infection however patient denies any history or treatment for Lyme disease. This could also represent active Lyme infection that is been present for several weeks. Given this we will continue doxycycline treatment pending Western blot results. If negative, discontinue. If positive continue 10-day course (4) Asthma: Plan: Quiescent, can use albuterol as needed (5) Dyslipidemia: Plan: Patient does not appear to be on any medications at this an outpatient Cholesterol 216, LDL 161. Recommend starting statin with follow-up LFTs as outpatient Admission and Anticipated Discharge Date Admission Date: July 05, 2021 Kailee Sharif is seen at the bedside. He reports he feels much better than yesterday, and the pain in his foot is greatly improved. Still persist with some swelling. No fevers overnight, but did have some sweats overnight. Denies nausea, vomiti ng, abdominal pain, headache, vision change. Did discuss Lyme serology, patient reports he has never had or been treated for Lyme disease to his knowledge. Discussed that his IgG was positive, and c onfirmation testing is pending but this could suggest either past infection which was cleared/treated or Lyme infection which is been present for several weeks but untreated. Given the inability to tell between these without confirmation testing we will continue empiric doxycycline pending Western blot testing. Also discussed with patient that while he has improved with Methylpred and colchicine for gout treatment, and that his CT imaging is consistent with gout, a infected joint cannot be completely excluded and he has been on vancomycin which could cause improvement where the joint infected. He did have 1/4 blood culture bottles which is more suggestive of contamination, speciate it for alpha strep which is a frequent contaminant. Surveillance cultures remain negative. Discussed that differential for his joint pain includes gout, Lyme, and that a joint infection cannot be excluded without performing a tap. Review of Systems Review of Systems: All systems reviewed & are unremarkable except as noted in Subjective Physical Exam Physical Exam: General: A&Ox3. NAD. Cooperative. HEENT: Atraumatic, normocephalic. Pulls equal and reactive to light. Vision and hearing grossly intact. Pulm: CTAB A&P. -wheezes, -rales, -rhonchi. Symmetrical chest rise. No increased work of breathing. No respiratory distress. Cardiac: RRR, -mrg. Radial pulses intact and symmetrical. Abdominal: Nontender, nondistended, soft. BS present. Extremity: LEFT Foot: MTP red, swollen with edema through the foot. No warmth on exam, nontender today. Patient reports improved warmth and tenderness from prior. Sensation soft touch intact without deficit, ankle dorsiflexion/plantarflexion intact, passive flexion and extension of the hallux is intact without pain, active flexion/extension of hallux is intact without pain. Right foot: Trace erythema at first MTP, nontender, no warmth. PT pulses intact bilaterally. Results & Data Results & Data ([facility]) Vital Signs (Past 12 Hours) Vital Signs Temp Pulse Resp BP Pulse Ox 07/06/21 07:21 36.5 C 68 16 137/77 99 PG Care Time/CCT Total # of Minutes Spent Total Time Spent with Patient: Total time spent is greater than 50% in coordination of care (as documented) at patient's floor/unit and/or counseling patient: Coding Level of Care Code 88973 Subseq Hosp Care Lvl 2 Diagnoses Gout M10.9 Chronicity: acute Gout etiology: unspecified cause Gout site: foot Laterality: unspecified laterality Blood bacterial culture positive R78.81 Positive Lyme disease serology R76.8 Asthma J45.909 Dyslipidemia E78.5 (1) Gout Chronicity: acute Gout etiology: unspecified cause Gout site: foot Laterality: unspecified laterality Qualified Code(s): M10.9 - Gout, unspecified
[2021-07-06 15:09] LABS: Appearance Urine Clear (Clear); Bilirubin Urine Negative (Negative); Blood Urine Negative (Negative); Color Urine Yellow; Glucose Urine UA 2+ (Negative); Ketones Urine Negative (Negative); Leukocyte Esterase Urine Negative (Negative); Nitrite Urine Negative (Negative); Protein Urine Negative (Negative); Specific Gravity Urine 1.025 (1.000-1.030); Urobilinogen Urine Negative (Negative); pH Urine 5.5 (4.5-7.5)
--- NOTE | 2021-07-06 18:02 | Electrocardiogram Report ---
Test Reason : Blood Pressure : / mmHG Vent. Rate : 085 BPM Atrial Rate : 085 BPM P-R Int : 156 ms QRS Dur : 098 ms QT Int : 362 ms P-R-T Axes : 068 -12 062 degrees QTc Int : 430 ms Poor data quality, interpretation may be adversely affected Normal sinus rhythm Normal ECG No previous ECGs available Confirmed by Andrae Sauceda ([id number]) on 07/06/2021 6:02:47 PM Referred By: REFERRED SELF Confirmed By:Andrae Sauceda
[2021-07-07 05:59] LABS: Basophils # (auto) 0.04 K/uL (0-0.2); Basophils % (auto) 0.4 %; Eosinophils # (auto) 0.14 K/uL (0-0.5); Eosinophils % (auto) 1.3 %; Hematocrit (blood only) 37.8 % (42-52); Hemoglobin 12.9 g/dL (14.0-18.0); Immature Granulocytes # (auto) 0.02 K/uL (0.00-0.02); Immature Granulocytes % (auto) 0.2 %; Lymphocytes # (auto) 2.22 K/uL (1.2-3.4); Lymphocytes % (auto) 20.6 %; Mean Corpuscular Hemoglobin 31.4 pg (25-34); Mean Corpuscular Hgb Conc 34.1 g/dL (32-36); Mean Platelet Volume 9.6 fL (7.4-10.4); Monocytes # (auto) 1.02 K/uL (0.11-0.59); Monocytes % (auto) 9.5 %; Neutrophils # (auto) 7.35 K/uL (1.4-6.5); Platelet Count 401 K/uL (130-400); RDW Coefficient of Variation 12.2 % (11.5-14.5); RDW Standard Deviation 41.6 fL (36.4-46.3); Red Blood Count 4.11 M/uL (4.7-6.1); White Blood Count 10.79 K/uL (4.8-10.8)
[2021-07-07 06:18] LABS: BUN Creatinine Ratio 23.6 (10-20); C Reactive Protein 9.63 mg/dl (0-0.5); Calcium 9.1 mg/dl (8.5-10.1); Creatinine Clr Calc Pharmacy 82.8 ml/min; Est GFR (African American) 68.5 ml/min; Est GFR (Non-African American) 59.1 ml/min; Potassium 4.3 mmol/L (3.5-5.1)
[2021-07-07 07:37] VITALS: BP 146/87; TEMP 97.9; O2SAT 100
[2021-07-07] MEDS: MULTIVITAMIN TAB PO SCH (08:35)
[2021-07-07] MEDS: VITAMIN B COMPLEX TAB PO SCH (08:36)
[2021-07-07] MEDS: COLCHICINE 0.6 MG TAB PO SCH (08:36)
[2021-07-07 09:09] VITALS: PULSE 79
[2021-07-07] MEDS ORDERED: VANCOMYCIN TROUGH ONE (10:30)
--- NOTE | 2021-07-10 11:04 | Emergency Department Note ---
ED Visit Note ED FOLLOW UP NOTE: Contacted the patient today to follow-up with him regarding his Western blot testing, which did come back positive for 9 of 10 IgG bands, which is considered a positive Western blot. Patient's admission was reviewed. He is still taking the doxycycline and was encouraged to finish this. He is feet are improving from a gouty standpoint as well, redness is nearly gone and pain is much improved. He has a follow-up appointment with his PCP in a few days, was encouraged to keep this. : Gout Qualifiers: Gout site: foot Gout etiology: unspecified cause Chronicity: acute Laterality: unspecified laterality Qualified Code(s): M10.9 - Gout, unspecified
== END 2021-07-07 09:26 | disposition home or self-care (01) | DRG 554 ==
LOC: ED 09:08 → 3E 14:14 → SUATTDRO 14:14 → 3E 15:37